=== PATIENT | male | born 1970 | race African-American/Black ===

== ENCOUNTER 2022-03-30 16:37 | Emergency (ER) | payer SELFPAY ==
[~2022-03-30] VITALS: Ht 168.9 cm; Wt 72.0 kg
[2022-03-30] MEDS ORDERED: ASPIRIN CHEWABLE 81 MG TABLET. PO ONE (17:15)
[2022-03-30 17:19] LABS: BASO # 0.1 x10^3/uL (0.0-0.2); BASO % 2 % (0-3); EOS # 0.1 x10^3/uL (0.0-0.7); EOS % 1 % (0-3); HEMATOCRIT 40.9 % (39.0-53.0); HEMOGLOBIN 13.8 g/dL (13.0-17.5); LYMPH % 35 % (24-48); MEAN CORPUSCULAR HEMOGLOBIN 29 pg (25-35); MEAN CORPUSCULAR HGB CONC 34 g/dL (31-37); MEAN CORPUSCULAR VOLUME 85 fL (79-100); MONO # 0.5 x10^3/uL (0.0-1.1); MONO % 8 % (0-9); NEUT # 3.1 x10^3/uL (1.8-7.7); NEUT % 54 % (31-73); PLATELET COUNT 173 x10^3/uL (140-400); RED BLOOD COUNT 4.83 x10^6/uL (4.30-5.70); WHITE BLOOD COUNT 5.8 x10^3/uL (4.0-11.0)
[2022-03-30 17:32] LABS: CALCIUM 8.6 mg/dL (8.5-10.1); CREATININE 0.9 mg/dL (0.7-1.3); GFR 107.6; POTASSIUM 4.3 mmol/L (3.5-5.1)
[2022-03-30] MEDS ORDERED: predniSONE 10 MG TABLET PO ONE (18:15)
[2022-03-30] MEDS ORDERED: KETOROLAC 30 MG/ML VIAL. IVP ONE (18:15)
[2022-03-30 18:44] LABS: ALBUMIN 3.3 g/dL (3.4-5.0); ALK PHOS 85 U/L (46-116); ALT (SGPT) 14 U/L (16-63); AST (SGOT) 27 U/L (15-37); DIRECT BILIRUBIN < 0.1 mg/dL (0.0-0.2); TOTAL BILIRUBIN 0.2 mg/dL (0.2-1.0); TOTAL PROTEIN 7.4 g/dL (6.4-8.2)
--- NOTE | 2022-03-30 19:38 | RAD ---
EXAMINATION: XR CHEST 2V CLINICAL HISTORY: Chest pain. EXAM DATE/TIME: 03/30/2022 6:16 PM COMPARISON: None FINDINGS: Lines, Tubes, and Devices: None. Cardiomediastinal Silhouette: Normal heart size. Aortic atherosclerotic calcification. Lungs and Pleura: No evidence of focal airspace consolidation or pleural effusion. Pulmonary vasculat ure unremarkable. Bones and Soft Tissues: Degenerative changes in the thoracic spine. IMPRESSION: No evidence of acute cardiopulmonary abnormality. Electronically signed by: Geronimo Trujillo DO (03/30/2022 7:35 PM) VIKKI
--- NOTE | 2022-03-30 19:57 | EKG ---
[facility] [address] [place] [address] Test Date: 2022-03-30 Test Time: 16:42:42 Pat Name: JOSSELYN DUMONT Department: Room: Gender: M [employer]: [place] : 1970 Requested By: HENNA Canales Number: [id number] Reading MD: Andrey Mccrary Measurements Intervals [place] Rate: 67 P: 63 MO: 194 QRS: 38 QRSD: 90 T: 33 QT: 366 QTc: 389 Interpretive Statements SINUS RHYTHM LOW LIMB LEAD VOLTAGE Electronically Signed On 04-01-2022 14:50:53 CDT by Andrey Mccrary
[2022-03-30 20:00] VITALS: BP 151/92
[2022-03-30] MEDS ORDERED: IBUP-1007 PO (20:31)
[2022-03-30] MEDS ORDERED: PRED20TA PO (20:31)
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
== END 2022-03-30 20:38 | disposition home or self-care (01) ==
LOC: ER 16:37
DX: M54.12 Radiculopathy, cervical region (principal); R07.89 Other chest pain; F17.210 Nicotine dependence, cigarettes, uncomplicated; M47.814 Spondylosis without myelopathy or radiculopathy, thoracic region
CPT/HCPCS: 36415; 71046; 80048; 80076; 84484; 85025; 93005; 96374; 99285; J1885; J7512